=== PATIENT | male | born 1975 | race Caucasian/White ===

== ENCOUNTER 2018-02-19 16:36 | Emergency (ER) | payer OTHER ==
[2018-02-19 16:47] VITALS: BP 113/73
--- NOTE | 2018-02-19 17:19 | EDPHY ---
H & P Stated Complaint: R 4th and 5th finger injury Source: Patient Exam Limitations: No limitations - Personal History Current Tetanus/Diphtheria Vaccine: Yes Current Tetanus Diphtheria and Acellular Pertussis (TDAP): Yes - Medical/Surgical History Hx Asthma: No Hx Chronic Respiratory Disease: No Hx Diabetes: No Hx Cardiac Disease: No Hx Renal Disease: No Hx Cirrhosis: No Hx Alcoholism: No Hx HIV/AIDS: No Hx Splenectomy or Spleen Trauma: No Other PMH: PNA - Social History Smoking Status: Never smoked Time Seen by Provider: 02/19/18 17:18 HPI/ROS: HPI: This is a 43-year-old male who presents with Chief Complaint: R 4th and 5th finger injury Location: 4th and 5th fingers of the right hand Quality: Crush Injury Duration: Prior to arrival Signs and Symptoms: + bleeding, no radiation, no numbness, no weakness, no tingling, no incontinence, no decreased range of motion, no swelling, + pain, no fever Timing: Acute Severity: 04/21 Context: Patient is right-hand dominant, presents with complaints of 400 lb roll of film falling on his right 4th and 5th digits. Reports that his right hand was wedged between the film and a metal table. He reports that he felt immediate, constant, severe pain in his 4th and 5th digits at the tips. Reports tetanus up-to-date. Denies paresthesias/decreased range of motion/weakness. Apply direct pressure and then gauze and bandaged up. Denies LOC/head injury/ neck pain/dizziness/nausea/vomiting/amnesia. Modifying Factors: See above Comment: ROS: see HPI Constitutional: No fever, no chills, no weight loss Eyes: No blurred vision Respiratory: No shortness of breath, no cough Cardiovascular: No chest pain Gastrointestinal: No nausea, no vomiting no diarrhea Genitourinary: No dysuria Extremities: No myalgias Neurologic: No weakness, no numbness Skin: No rashes Hematologic: No bruising, no bleeding MEDICAL/SURGICAL/SOCIAL HISTORY: Medical history: Generally healthy. Does not take any regular medications. Surgical history: Denies Social history: Employed. . Nonsmoker. Family history noncontributory. CONSTITUTIONAL: Extremely polite and cooperative adult, middle-aged male awake and alert, no obvious distress HEENT: Atraumatic and normocephalic. NECK: supple, no midline tenderness, flexion 45 degrees, extension 45 degrees, right and left lateral flexion 45 degrees. No meningismus. Cardiovascular: Normal S1/S2, regular rate, regular rhythm, without murmur rub or gallop. PULMONARY/CHEST: Symmetrical and nontender. no crepitus. Clear to auscultation bilaterally. Good air movement. No accessory muscle usage. ABDOMEN: Soft, nondistended, nontender, no ecchymosis. PELVIC: no pain with rocking; bilateral hips flexion 125 degrees, extension 30 degrees, with no pain internal rotation and no pain external rotation. BACK: No midline tenderness, no paraspinous spasm, deep tendon reflexes 2/2, no pain with straight leg raise, No foot drop. Achilles reflexes are equal bilaterally. Able to walk on heels and toes without difficulty. EXTREMITIES: 2/2 pulses, strength 5/5, right 4th and 5th digits on the palmar aspect at DIP joint shows 3/4 inch, deep, simple lacerations. DIP/PIP/MCP flexion/extension intact with good light touch sensation. no deformities, no clubbing, no cyanosis or edema. NEUROLOGICAL: no focal neuro deficits. GCS 15. Light touch sensation intact. SKIN: Warm and dry, no erythema. no rash. Good capillary refill. (Jolene Henderson) Constitutional: Initial Vital Signs Temperature (C) 36.7 C 02/19/18 16:43 Heart Rate 77 02/19/18 16:43 Respiratory Rate 16 02/19/18 16:43 Blood Pressure 113/73 02/19/18 16:43 O2 Sat (%) 95 02/19/18 16:43 O2 Delivery Mode Room Air Allergies/Adverse Reactions: No Known Allergies Allergy (Unverified 02/19/18 16:43) Home Medications: Medication Instructions Recorded NK [No Known Home Meds] 02/19/18 Medical Decision Making - Diagnostics Imaging Results: Imaging Impressions Hand X-Ray 02/19/18 17:22 Impression: Soft tissue injury over the distal aspects of the fourth and fifth digits, with no radiopaque foreign body or acute osseous abnormality. Procedures: Procedure: Laceration repair. Verbal consent was obtained from the patient. The 3/4 inch, simple, deep laceration on the 4th finger was anesthetized using a digital block usual fashion using 1% lidocaine without epinephrine. The wound was irrigated, draped and explored to its base with a gloved finger. There were no deep structures involved. No tendon injury was identified. The wound was repaired with #4, 5 0 Prolene good hemostasis was achieved and patient tolerated procedure well. Xeroform and clean sterile dressing applied. The procedure was performed by myself. Procedure: Laceration repair. Verbal consent was obtained from the patient. The 3/4 inch, simple, deep laceration on the 5th finger was anesthetized using a digital block usual fashion using 1% lidocaine without epinephrine. The wound was irrigated, draped and explored to its base with a gloved finger. There were no deep structures involved. No tendon injury was identified. The wound was repaired with #4, 5 0 Prolene. This was achieved and patient tolerated procedure well. Xeroform and clean sterile dressing applied. The procedure was performed by myself. Procedure: Splint placement. A 4th and 5th finger splint was applied by the Emergency Room hydroelectric systems technician. After application of the splint I returned and re-examined the patient. The splint was adequately immobilizing the joint and distal to the splint the patient's circulation and sensation was intact. (Jolene Henderson) ED Course/Re-evaluation: Right hand x-ray ordered. Tetanus up-to-date. Digital block performed upon arrival. Right hand x-ray my read shows minimally displaced phalanx fracture inferior to the PIP joint; soft tissue swelling noted in the 4th and 5th digits. (Jolene Henderson ) The patient was evaluated and managed by the physician's fish hatchery assistant. My cosignature indicates that I reviewed the chart and I agree with the findings and plan of care as documented. I am the secondary supervising physician. ( Margareth Dover) Differential Diagnosis: Differential diagnosis includes but is not limited to nail avulsion, nail injury , contusion, hematoma, phalanx fracture, tendon injury, nerve injury. (Jolene Henderson) Departure - Departure Disposition: Home, Routine, Self-Care Clinical Impression: Suspected fracture of bone Laceration of right ring finger w/o foreign body w/o damage to nail Qualifiers: Encounter type: initial encounter Qualified Code(s): S61.214A - Laceration without foreign body of right ring finger without damage to nail, initial encounter Crushing injury of finger(s) Qualifiers: Encounter type: initial encounter Qualified Code(s): S67.10XA - Crushing injury of unspecified finger(s), initial encounter Laceration of right little finger w/o foreign body w/o damage to nail Qualifiers: Encounter type: initial encounter Qualified Code(s): S61.216A - Laceration without foreign body of right little finger without damage to nail, initial encounter Fracture of phalanx of little finger Qualifiers: Encounter type: initial encounter Fracture type: closed Phalanx: middle Fracture alignment: nondisplaced Laterality: right Qualified Code(s): S62.656A - Nondisplaced fracture of medial phalanx of right little finger, initial encounter for closed fracture Condition: Good Instructions: Splint Care (ED), Finger Laceration (ED) Additional Instructions: Keep the splint and dressing dry and in place until stitches removed in 10 days. Take Tylenol 650 mg every 4 hours and/or Ibuprofen 600 mg every 8 hours with food as needed for pain. Apply ice for 30 minutes at a time; 2-3 times per day for the next 1-2 days. Wound Care Follow-Up: Removal of sutures in [10] days. Suture removal is complimentary in uncomplicated cases. Infection or abnormal findings would require reevaluation by the MD. In that case, you may be billed. Follow up with Orthopedics in 10-14 days at which time they will evaluate and recommend with you if conservative management versus further imaging is indicated. The x-rays obtained in the emergency department today demonstrate questionable fracture in your fifth finger. Return to the ER immediately if you experience new or worsening pain, discoloration, numbness, tingling, or any other symptoms that concern you. Referrals: Teresa Miner MD [Medical Doctor] - As per Instructions
[2018-02-19] MEDS ORDERED: LET GEL TOPICAL 1 EA SYR TP ONE (17:22)
== END 2018-02-19 18:50 | disposition home or self-care (01) ==
PROC: 0HQFXZZ Repair Right Hand Skin, External Approach (ICD-10-PCS; principal; 2018-02-19)
PROC: 0HQFXZZ Repair Right Hand Skin, External Approach (ICD-10-PCS; 2018-02-19)
DX: S62.656A Nondisplaced fracture of middle phalanx of right little finger, initial encounter for closed fracture (principal); S61.214A Laceration without foreign body of right ring finger without damage to nail, initial encounter; S61.216A Laceration without foreign body of right little finger without damage to nail, initial encounter; W20.8XXA Other cause of strike by thrown, projected or falling object, initial encounter
CPT/HCPCS: L3925